=== PATIENT | female | born 1960 | race African-American/Black ===

== ENCOUNTER 2017-07-04 10:55 | Observation (INO) ==
[2017-07-04] MEDS ORDERED: ONDANSETRON 4 MG/2 ML VIAL IV STA ×2 (12:04→16:24)
[2017-07-04] MEDS ORDERED: ALUM/MAG/SIMETH/LIDO VISC 1:1 30 ML BOTTLE PO STA (12:04)
[2017-07-04] MEDS ORDERED: NITROGLYCERIN 2% OINT 1 INCH/GM PACK TOP STA (12:04)
[2017-07-04] MEDS ORDERED: MORPHINE 2 MG/1 ML SYRINGE IV STA ×2 (12:04→16:24)
[2017-07-04] MEDS ORDERED: ASPIRIN 325 MG TABLET PO STA (12:04)
[2017-07-04] MEDS ORDERED: ALUM/MAG/SIMETH/LIDO VISC 1:1 30 ML BOTTLE PO ONE (12:10)
[2017-07-04] MEDS ORDERED: ONDANSETRON 4 MG/2 ML VIAL ONE ×2 (12:10→16:13)
[2017-07-04] MEDS ORDERED: NITROGLYCERIN 2% OINT 1 INCH/GM PACK TOP ONE (12:10)
[2017-07-04] MEDS ORDERED: ASPIRIN 325 MG TABLET ONE (12:10)
[2017-07-04] MEDS ORDERED: MORPHINE 2 MG/1 ML SYRINGE ONE ×2 (12:10→16:13)
[2017-07-04] MEDS ORDERED: hydrALAZINE 20 MG/1 ML VIAL ONE ×2 (12:31→18:13)
[2017-07-04] MEDS ORDERED: hydrALAZINE 20 MG/1 ML VIAL IV STA ×3 (12:34→18:12)
[2017-07-04 12:40] LABS: Apearance,Urine CLOUDY (Clear); Bacteria,Urine Occasional /HPF (Few); Bilirubin,Urine Negative (Negative); Blood, Urine Negative (Negative); Glucose,Urine (UA) Negative (Negative); Ketones,Urine Negative (Negative); Mucus,Urine Moderate /LPF (Occasional); Nitrite,Urine Negative (Negative); Protein,Urine Negative; RBC,Urine 2 /HPF (0-4); Squamous Epithelial Cell,Urine Moderate /HPF (0-10); Urine Color Yellow (Yellow); Urine Specific Gravity 1.019 (1.001-1.035); Urine Urobilinogen < 2.0 EU/DL (0.2-1.0); WBC,Urine 6 /HPF (0-6)
[2017-07-04 12:52] LABS: Basophils % 0.8 % (0.0-0.8); Eosinophils # 0.2 10*3/uL (0.0-0.87); Hematocrit 38.1 VOL% (35.7-47.0); Hemoglobin 12.2 GM/DL (12.0-16.0); Lymphocytes # 2.8 10*3/uL (1.4-4.0); Lymphocytes % 53.9 % (21.3-54.2); Mean Corpuscular Hemoglobin 27 PG (27-34); Mean Corpuscular Volume 83.2 FL (87-102); Mean Platelet Volume 10.6 FL (9.6-12.0); Monocytes # 0.4 10*3/uL (0.11-0.8); Neutrophils # 1.8 10*3/uL (1.4-7.4); Neutrophils % 34.3 % (38.7-73.9); Platelet Count 272 T/CUMM (130-400); Red Blood Count 4.58 MC/CUMM (3.8-5.5); Red Cell Distribution Width 14.6 % (9.3-17.3); White Blood Count 5.3 T/CUMM (4-12)
[2017-07-04 13:10] LABS: INR 1.2; PT Patient Result 12.1 SECS
[2017-07-04 13:17] LABS: Alanine Aminotransferase < 9 U/L (13-56); Albumin 3.8 G/DL (3.4-5.0); Alkaline Phosphatase 85 U/L (45-117); Aspartate Amino Transferase 16 U/L (0-37); Bilirubin,Total < 0.39 MG/DL (0.2-1.0); Blood Urea Nitrogen 13 MG/DL (7-18); Calcium 9.1 MG/DL (8.5-10.1); Eosinophils 2 % (0-10); Glucose 95 MG/DL (74-106); Lymphocytes 54 % (20-55); Magnesium 2.3 MG/DL (1.8-2.4); Osmolality,Calculated 282.1 MOS/KG (273-304); Platelet Estimate Adequate; Potassium 3.7 MMOL/L (3.5-5.1); Segmented Neutrophils 36 % (50-85); Sodium 142 MMOL/L (136-145); Total Cells Counted 100; Total Protein 7.6 G/DL (6.4-8.3)
[2017-07-04 13:18] LABS: Atypical Lymphocytes Few; Giant Platelets Few; Hypochromasia 1+
[2017-07-04] MEDS ORDERED: ACETAMINOPHEN 325 MG TABLET PO PRN (15:24)
[2017-07-04] MEDS ORDERED: ENOXAPARIN 40 MG/0.4 ML SYRINGE ONE (17:34)
[2017-07-04] MEDS: ENOXAPARIN 40 MG/0.4 ML SYRINGE SUBCUT SCH (18:18)
[2017-07-04] MEDS ORDERED: hydrALAZINE 20 MG/1 ML VIAL IV PRN (18:39)
[2017-07-04] MEDS: ONDANSETRON 4 MG/2 ML VIAL IV PRN (20:33)
[2017-07-04] MEDS ORDERED: FAMOTIDINE 20 MG TABLET PO PRN (23:49)
[2017-07-05] MEDS: ONDANSETRON 4 MG/2 ML VIAL IV PRN ×3 (04:25→15:58)
[2017-07-05 04:55] LABS: Basophils % 0.4 % (0.0-0.8); Eosinophils % 0.4 % (0.00-10.9); Hematocrit 37.9 VOL% (35.7-47.0); Hemoglobin 12.1 GM/DL (12.0-16.0); Immature Granulocytes % 0.1 %; Immature Granulocytes Absolute 0.01 #; Lymphocytes # 2.8 10*3/uL (1.4-4.0); Lymphocytes % 39.6 % (21.3-54.2); Mean Corpuscular HGB Conc 31.9 GM/DL (32-36); Mean Corpuscular Hemoglobin 26 PG (27-34); Mean Corpuscular Volume 82.2 FL (87-102); Mean Platelet Volume 10.5 FL (9.6-12.0); Monocytes # 0.4 10*3/uL (0.11-0.8); Monocytes % 5.6 % (1.7-12.7); Neutrophils # 3.8 10*3/uL (1.4-7.4); Neutrophils % 53.9 % (38.7-73.9); Platelet Count 275 T/CUMM (130-400); Red Blood Count 4.61 MC/CUMM (3.8-5.5); Red Cell Distribution Width 14.6 % (9.3-17.3); White Blood Count 7.1 T/CUMM (4-12)
[2017-07-05 05:47] LABS: Calcium 8.7 MG/DL (8.5-10.1); Magnesium 2.2 MG/DL (1.8-2.4); Potassium 3.7 MMOL/L (3.5-5.1); Risk Ratio 2.56; VLDL CHOLESTEROL 6.8 MG/DL
[2017-07-05] MEDS ORDERED: PANTOPRAZOLE 40 MG TABLET PO SCH (09:00)
[2017-07-05] MEDS: MORPHINE 2 MG/1 ML SYRINGE IV PRN ×2 (09:02→15:57)
[2017-07-05] MEDS ORDERED: CARVEDILOL 25 MG TABLET PO SCH (09:30)
[2017-07-05] MEDS ORDERED: HydrOXYzine PAMOATE 25 MG CAPSULE PO PRN (11:52)
[2017-07-05] MEDS ORDERED: CARISOPRODOL 350 MG TABLET PO PRN (11:52)
[2017-07-05] MEDS: ENOXAPARIN 40 MG/0.4 ML SYRINGE SUBCUT SCH (15:57)
[2017-07-05 16:31] VITALS: BP 111/67
[2017-07-05] MEDS ORDERED: TOPIRAMATE 100 MG TABLET PO SCH (21:00)
[2017-07-05] MEDS ORDERED: busPIRone 15 MG TABLET PO SCH (21:00)
== END 2017-07-05 17:35 | disposition home or self-care (01) ==
LOC: N.ED 10:55 → N.EDINP 10:55 → SUATTDRO 14:36 → N.TELES 18:49
PROVIDERS: ADMIT Internal Medicine Nephrology; ATTEND Internal Medicine

== ENCOUNTER 2017-12-22 17:40 | Observation (INO) ==
[2017-12-22] MEDS ORDERED: ASPIRIN 325 MG TABLET PO STA (18:12)
[2017-12-22 18:32] LABS: Basophils % 0.6 % (0.0-0.8); Eosinophils # 0.2 10*3/uL (0.0-0.87); Hematocrit 37.7 VOL% (35.7-47.0); Hemoglobin 12.2 GM/DL (12.0-16.0); Lymphocytes # 2.5 10*3/uL (1.4-4.0); Lymphocytes % 49.6 % (21.3-54.2); Mean Corpuscular HGB Conc 32.4 GM/DL (32-36); Mean Corpuscular Hemoglobin 27 PG (27-34); Mean Corpuscular Volume 82.9 FL (87-102); Mean Platelet Volume 10.3 FL (9.6-12.0); Monocytes # 0.5 10*3/uL (0.11-0.8); Monocytes % 10.3 % (1.7-12.7); Neutrophils # 1.8 10*3/uL (1.4-7.4); Neutrophils % 35.5 % (38.7-73.9); Platelet Count 250 T/CUMM (130-400); Red Blood Count 4.55 MC/CUMM (3.8-5.5); Red Cell Distribution Width 14.9 % (9.3-17.3)
[2017-12-22 18:44] LABS: Albumin 4.1 G/DL (3.4-5.0); Bilirubin,Total 0.4 MG/DL (0.2-1.0); Calcium 8.5 MG/DL (8.5-10.1); Osmolality,Calculated 282.5 MOS/KG (273-304); Potassium 3.5 MMOL/L (3.5-5.1); Total Protein 8.2 G/DL (6.4-8.3)
[2017-12-22 18:52] LABS: Atypical Lymphocytes Few; Eosinophils 2 % (0-10); Lymphocytes 57 % (20-55); Platelet Estimate Normal; Segmented Neutrophils 37 % (50-85); Smudge Cells Few; Total Cells Counted 100
[2017-12-22] MEDS ORDERED: ACETAMINOPHEN 325 MG TABLET PO PRN (20:10)
[2017-12-22 20:51] LABS: Risk Ratio 2.97; VLDL CHOLESTEROL 15.6 MG/DL
[2017-12-22] MEDS: FAMOTIDINE 20 MG TABLET PO SCH (21:26)
[2017-12-22] MEDS: ENOXAPARIN 40 MG/0.4 ML SYRINGE SUBCUT SCH (21:26)
[2017-12-22] MEDS ORDERED: CARISOPRODOL 350 MG TABLET PO PRN (23:10)
[2017-12-22] MEDS ORDERED: HydrOXYzine PAMOATE 25 MG CAPSULE PO PRN (23:10)
[2017-12-22] MEDS ORDERED: LOSARTAN/HCTZ 50-12.5 MG TABLET PO SCH (23:15)
[2017-12-22] MEDS ORDERED: RANITIDINE 150 MG TABLET PO SCH (23:30)
[2017-12-22] MEDS: CARVEDILOL 25 MG TABLET PO SCH (23:33)
[2017-12-22] MEDS: ZALEPLON 5 MG CAPSULE PO PRN (23:33)
[2017-12-22] MEDS: busPIRone 10 MG TABLET PO SCH (23:33)
[2017-12-22] MEDS: CITALOPRAM 20 MG TABLET PO SCH ×2 (23:33→23:45)
[2017-12-22] MEDS: TOPIRAMATE 100 MG TABLET PO SCH (23:34)
[2017-12-22] MEDS: PANTOPRAZOLE 40 MG TABLET PO SCH (23:34)
[2017-12-23 01:15] LABS: Calcium 8.7 MG/DL (8.5-10.1); Osmolality,Calculated 285.3 MOS/KG (273-304); Potassium 3.3 MMOL/L (3.5-5.1)
[2017-12-23] MEDS: ASPIRIN EC 325 MG TABLET PO SCH (08:39)
[2017-12-23] MEDS: FAMOTIDINE 20 MG TABLET PO SCH ×2 (08:39→21:26)
[2017-12-23] MEDS: CARVEDILOL 25 MG TABLET PO SCH ×2 (11:54→21:46)
[2017-12-23] MEDS: ENOXAPARIN 40 MG/0.4 ML SYRINGE SUBCUT SCH (21:26)
[2017-12-23] MEDS: CITALOPRAM 20 MG TABLET PO SCH (21:26)
[2017-12-23] MEDS: busPIRone 10 MG TABLET PO SCH (21:26)
[2017-12-23] MEDS: TOPIRAMATE 100 MG TABLET PO SCH (21:27)
[2017-12-23] MEDS: PANTOPRAZOLE 40 MG TABLET PO SCH (21:27)
[2017-12-23] MEDS: ZALEPLON 5 MG CAPSULE PO PRN (21:30)
[2017-12-24 03:50] LABS: Calcium 9.2 MG/DL (8.5-10.1); Osmolality,Calculated 276.7 MOS/KG (273-304); Potassium 3.6 MMOL/L (3.5-5.1)
[2017-12-24] MEDS: CARVEDILOL 25 MG TABLET PO SCH (09:05)
[2017-12-24] MEDS: ASPIRIN EC 325 MG TABLET PO SCH (09:05)
[2017-12-24] MEDS: FAMOTIDINE 20 MG TABLET PO SCH (09:05)
[2017-12-24 12:56] VITALS: BP 105/50
== END 2017-12-24 13:25 | disposition home or self-care (01) ==
LOC: N.ED 17:40 → N.EDINP 17:40 → SUATTDRO 20:10 → N.TELEN 20:31
PROVIDERS: ADMIT Internal Medicine; ATTEND Internal Medicine

== ENCOUNTER 2020-11-11 17:51 | Observation (INO) ==
[2020-11-11 18:25] LABS: Basophils # 0.1 10*3/uL (0.0-0.2); Basophils % 0.7 % (0.0-0.8); Eosinophils # 0.2 10*3/uL (0.0-0.87); Eosinophils % 2.9 % (0.00-10.9); Hematocrit 44.2 VOL% (35.7-47.0); Hemoglobin 13.6 GM/DL (12.0-16.0); Immature Granulocytes % 0.1 %; Immature Granulocytes Absolute 0.01 #; Lymphocytes # 4.3 10*3/uL (1.4-4.0); Lymphocytes % 61.6 % (21.3-54.2); Mean Corpuscular HGB Conc 30.8 GM/DL (32-36); Neutrophils % 26.7 % (38.7-73.9); Platelet Count 328 T/CUMM (130-400); Red Blood Count 5.14 MC/CUMM (3.8-5.5); Red Cell Distribution Width 14.3 % (9.3-17.3)
[2020-11-11] MEDS ORDERED: NITROGLYCERIN SL 0.4 MG TABLET SL STA (18:33)
[2020-11-11 18:36] LABS: Albumin 4.1 G/DL (3.4-5.0); Bilirubin,Total 0.4 MG/DL (0.2-1.0); Calcium 9.5 MG/DL (8.5-10.1); Osmolality,Calculated 281.3 MOS/KG (273-304); Potassium 3.9 MMOL/L (3.5-5.1); Total Protein 8.1 G/DL (6.4-8.2)
[2020-11-11 19:26] LABS: Band Neutrophils 1 % (0-10); Lymphocytes 73 % (20-55); Segmented Neutrophils 22 % (50-85); Total Cells Counted 100
[2020-11-11 19:27] LABS: Microcytosis Slight; Platelet Estimate Normal
[2020-11-11] MEDS ORDERED: DEXTROSE 50% 25 GM/50 ML VIAL IV PRN (20:31)
[2020-11-11] MEDS ORDERED: ONDANSETRON 4 MG/2 ML VIAL IV PRN (20:31)
[2020-11-11] MEDS ORDERED: DOCUSATE SODIUM 100 MG CAPSULE PO PRN (20:31)
[2020-11-11] MEDS ORDERED: ZALEPLON 5 MG CAPSULE PO PRN (20:31)
[2020-11-11] MEDS ORDERED: GLUCAGON 1 MG VIAL IM PRN (20:31)
[2020-11-11] MEDS ORDERED: MORPHINE 4 MG/1 ML VIAL IV PRN (20:36)
[2020-11-11] MEDS ORDERED: carvediloL 3.125 MG TABLET PO SCH (21:00)
[2020-11-12] MEDS ORDERED: NITROGLYCERIN SL 0.4 MG TABLET SL PRN (00:16)
[2020-11-12 05:35] LABS: Basophils # 0.1 10*3/uL (0.0-0.2); Basophils % 0.7 % (0.0-0.8); Eosinophils # 0.2 10*3/uL (0.0-0.87); Eosinophils % 3.1 % (0.00-10.9); Hematocrit 42.2 VOL% (35.7-47.0); Hemoglobin 13.1 GM/DL (12.0-16.0); Immature Granulocytes % 0.1 %; Immature Granulocytes Absolute 0.01 #; Lymphocytes # 4.1 10*3/uL (1.4-4.0); Lymphocytes % 55.4 % (21.3-54.2); Mean Corpuscular Volume 86.3 FL (87-102); Mean Platelet Volume 9.9 FL (9.6-12.0); Monocytes % 8.4 % (1.7-12.7); Neutrophils % 32.3 % (38.7-73.9); Platelet Count 296 T/CUMM (130-400); Red Blood Count 4.89 MC/CUMM (3.8-5.5); Red Cell Distribution Width 14.1 % (9.3-17.3); White Blood Count 7.4 T/CUMM (4-12)
[2020-11-12] MEDS: ENOXAPARIN 40 MG/0.4 ML SYRINGE SUBCUT SCH ×2 (05:43→21:24)
[2020-11-12 06:01] LABS: Eosinophils 2 % (0-10); Hypochromasia Slight; Lymphocytes 46 % (20-55); Microcytosis Slight; Platelet Estimate Adequate; Segmented Neutrophils 49 % (50-85); Total Cells Counted 100
[2020-11-12 06:05] LABS: Osmolality,Calculated 282.1 MOS/KG (273-304); Potassium 3.4 MMOL/L (3.5-5.1); Risk Ratio 2.59; Thyroid Stimulating Hormone 1.13 uIU/ml (0.358-3.74); VLDL CHOLESTEROL 10.6 MG/DL
[2020-11-12] MEDS ORDERED: amLODIPine 10 MG TABLET PO SCH (09:00)
[2020-11-12] MEDS ORDERED: POTASSIUM CHLORIDE 20 MEQ TABLET PO ONE (09:15)
[2020-11-12] MEDS: SODIUM CHLORIDE 0.45% 1,000 ML IV SCH ×3 (09:43→17:11)
[2020-11-12] MEDS: HYOSCYAMINE 0.125 MG TABLET PO SCH ×3 (09:49→21:23)
[2020-11-12] MEDS: MONTELUKAST 10 MG TABLET PO SCH (09:49)
[2020-11-12] MEDS: busPIRone 10 MG TABLET PO SCH ×2 (09:50→21:25)
[2020-11-12] MEDS: PANTOPRAZOLE 40 MG TABLET PO SCH (09:50)
[2020-11-12] MEDS: carvediloL 25 MG TABLET PO SCH ×2 (09:50→21:23)
[2020-11-12] MEDS: LINACLOTIDE 145 MCG CAPSULE PO SCH (09:51)
[2020-11-12] MEDS: oxyCODONE/ACETAMINOPHEN 5-325 MG TABLET PO PRN (12:48)
[2020-11-12] MEDS ORDERED: ALUM/MAG/SIMETH/LIDO VISC 1:1 30 ML BOTTLE PO PRN (17:02)
[2020-11-12] MEDS: ZALEPLON 5 MG CAPSULE PO SCH (21:23)
[2020-11-12] MEDS: MORPHINE ER 15 MG TABLET PO SCH (21:23)
[2020-11-12] MEDS: TOPIRAMATE 100 MG TABLET PO SCH (21:24)
[2020-11-12] MEDS: LOSARTAN 50 MG TABLET PO SCH (21:24)
[2020-11-12] MEDS: CYCLOBENZAPRINE 10 MG TABLET PO SCH (21:44)
[2020-11-13] MEDS: SODIUM CHLORIDE 0.45% 1,000 ML IV SCH ×3 (01:12→10:35)
[2020-11-13 06:27] LABS: Calcium 8.4 MG/DL (8.5-10.1); Osmolality,Calculated 280.4 MOS/KG (273-304); Potassium 3.9 MMOL/L (3.5-5.1)
[2020-11-13 06:28] LABS: Basophils # 0.1 10*3/uL (0.0-0.2); Basophils % 0.9 % (0.0-0.8); Eosinophils # 0.2 10*3/uL (0.0-0.87); Eosinophils % 4.3 % (0.00-10.9); Hematocrit 37.8 VOL% (35.7-47.0); Hemoglobin 11.7 GM/DL (12.0-16.0); Immature Granulocytes % 0.2 %; Immature Granulocytes Absolute 0.01 #; Lymphocytes # 3.5 10*3/uL (1.4-4.0); Lymphocytes % 65.2 % (21.3-54.2); Mean Corpuscular Volume 87.3 FL (87-102); Mean Platelet Volume 10.3 FL (9.6-12.0); Neutrophils % 21.4 % (38.7-73.9); Platelet Count 261 T/CUMM (130-400); Red Blood Count 4.33 MC/CUMM (3.8-5.5); Red Cell Distribution Width 14.3 % (9.3-17.3); White Blood Count 5.4 T/CUMM (4-12)
[2020-11-13] MEDS: oxyCODONE/ACETAMINOPHEN 5-325 MG TABLET PO PRN ×3 (06:37→23:02)
[2020-11-13 06:56] LABS: Eosinophils 4 % (0-10); Lymphocytes 65 % (20-55); Platelet Estimate Adequate; Segmented Neutrophils 26 % (50-85); Total Cells Counted 100
[2020-11-13 06:57] LABS: Ovalocytes Slight
[2020-11-13 06:58] LABS: Atypical Lymphocytes Few; Hypochromasia Slight; Microcytosis Slight
[2020-11-13] MEDS: LINACLOTIDE 145 MCG CAPSULE PO SCH (07:57)
[2020-11-13] MEDS ORDERED: POTASSIUM CHLORIDE RIDER 10 MEQ in PREMIX 1 EACH IV PRN ×2 (08:17→17:29)
[2020-11-13] MEDS ORDERED: MAGNESIUM SULF RIDER 2 GM in PREMIX 1 EACH IV PRN ×2 (08:17→17:29)
[2020-11-13] MEDS: MONTELUKAST 10 MG TABLET PO SCH (09:04)
[2020-11-13] MEDS: ASPIRIN EC 81 MG TABLET PO SCH (09:04)
[2020-11-13] MEDS: PANTOPRAZOLE 40 MG TABLET PO SCH (09:04)
[2020-11-13] MEDS: busPIRone 10 MG TABLET PO SCH ×2 (09:04→21:09)
[2020-11-13] MEDS: HYOSCYAMINE 0.125 MG TABLET PO SCH ×3 (09:04→21:09)
[2020-11-13] MEDS: carvediloL 25 MG TABLET PO SCH ×2 (09:04→21:09)
[2020-11-13] MEDS ORDERED: DIAZEPAM 5 MG TABLET PO ONE (15:30)
[2020-11-13] MEDS ORDERED: diphenhydrAMINE CAP 50 MG CAPSULE PO ONE (15:30)
[2020-11-13] MEDS ORDERED: diphenhydrAMINE CAP 25 MG CAPSULE PO ONE (17:29)
[2020-11-13] MEDS: ZALEPLON 5 MG CAPSULE PO SCH (21:06)
[2020-11-13] MEDS: CYCLOBENZAPRINE 10 MG TABLET PO SCH (21:07)
[2020-11-13] MEDS: TOPIRAMATE 100 MG TABLET PO SCH (21:08)
[2020-11-13] MEDS: MORPHINE ER 15 MG TABLET PO SCH (21:08)
[2020-11-13] MEDS: ENOXAPARIN 40 MG/0.4 ML SYRINGE SUBCUT SCH (21:09)
[2020-11-13] MEDS: LOSARTAN 50 MG TABLET PO SCH ×2 (21:09→21:13)
[2020-11-14 05:10] LABS: Basophils % 0.7 % (0.0-0.8); Eosinophils # 0.3 10*3/uL (0.0-0.87); Eosinophils % 4.2 % (0.00-10.9); Immature Granulocytes % 0.2 %; Immature Granulocytes Absolute 0.01 #; Lymphocytes # 3.8 10*3/uL (1.4-4.0); Lymphocytes % 63.4 % (21.3-54.2); Mean Corpuscular HGB Conc 30.6 GM/DL (32-36); Mean Corpuscular Volume 86.7 FL (87-102); Mean Platelet Volume 9.9 FL (9.6-12.0); Monocytes % 8.7 % (1.7-12.7); Neutrophils % 22.8 % (38.7-73.9); Platelet Count 247 T/CUMM (130-400); Red Blood Count 4.15 MC/CUMM (3.8-5.5); Red Cell Distribution Width 14.1 % (9.3-17.3)
[2020-11-14 05:33] LABS: Atypical Lymphocytes Few; Eosinophils 4 % (0-10); Hypochromasia 1+; Lymphocytes 59 % (20-55); Microcytosis Slight; Segmented Neutrophils 31 % (50-85); Total Cells Counted 100
[2020-11-14 05:34] LABS: Ovalocytes Slight; Platelet Estimate Normal
[2020-11-14 05:42] LABS: Calcium 8.6 MG/DL (8.5-10.1); Potassium 3.9 MMOL/L (3.5-5.1)
[2020-11-14] MEDS ORDERED: DIAZEPAM 5 MG TABLET PO ONE ×2 (07:00→14:30)
[2020-11-14] MEDS ORDERED: diphenhydrAMINE CAP 25 MG CAPSULE PO ONE ×2 (07:00→14:30)
[2020-11-14] MEDS: MONTELUKAST 10 MG TABLET PO SCH (09:40)
[2020-11-14] MEDS: LINACLOTIDE 145 MCG CAPSULE PO SCH (09:40)
[2020-11-14] MEDS: PANTOPRAZOLE 40 MG TABLET PO SCH (09:41)
[2020-11-14] MEDS: carvediloL 25 MG TABLET PO SCH ×2 (09:41→21:15)
[2020-11-14] MEDS: HYOSCYAMINE 0.125 MG TABLET PO SCH ×3 (09:41→21:14)
[2020-11-14] MEDS: busPIRone 10 MG TABLET PO SCH ×2 (09:41→21:11)
[2020-11-14] MEDS: ASPIRIN EC 81 MG TABLET PO SCH (09:41)
[2020-11-14] MEDS: SODIUM CHLORIDE 0.45% 1,000 ML IV SCH ×2 (12:52→21:19)
[2020-11-14] MEDS ORDERED: HEPARIN/NACL 0.9% 2 UNITS/ML 2,000 UNIT/1,000 ML BAG IV ONE (14:07)
[2020-11-14] MEDS ORDERED: MIDAZOLAM 2 MG/2 ML VIAL ONE ×2 (14:40→14:55)
[2020-11-14] MEDS ORDERED: fentaNYL 100 MCG/2 ML VIAL ONE (14:40)
[2020-11-14] MEDS ORDERED: LIDOCAINE 1% 20 ML VIAL ONE (14:40)
[2020-11-14] MEDS: CYCLOBENZAPRINE 10 MG TABLET PO SCH (21:12)
[2020-11-14] MEDS: ZALEPLON 5 MG CAPSULE PO SCH (21:13)
[2020-11-14] MEDS: TOPIRAMATE 100 MG TABLET PO SCH (21:14)
[2020-11-14] MEDS: MORPHINE ER 15 MG TABLET PO SCH (21:15)
[2020-11-14] MEDS: LOSARTAN 50 MG TABLET PO SCH (21:16)
[2020-11-14] MEDS: ENOXAPARIN 40 MG/0.4 ML SYRINGE SUBCUT SCH (21:17)
[2020-11-15] MEDS: oxyCODONE/ACETAMINOPHEN 5-325 MG TABLET PO PRN (00:11)
[2020-11-15] MEDS: SODIUM CHLORIDE 0.45% 1,000 ML IV SCH ×2 (07:14→09:39)
[2020-11-15 08:50] VITALS: BP 155/89
[2020-11-15] MEDS: LINACLOTIDE 145 MCG CAPSULE PO SCH (09:38)
[2020-11-15] MEDS: HYOSCYAMINE 0.125 MG TABLET PO SCH (09:38)
[2020-11-15] MEDS: PANTOPRAZOLE 40 MG TABLET PO SCH (09:39)
[2020-11-15] MEDS: ASPIRIN EC 81 MG TABLET PO SCH (09:39)
[2020-11-15] MEDS: carvediloL 25 MG TABLET PO SCH (09:39)
[2020-11-15] MEDS: busPIRone 10 MG TABLET PO SCH (09:39)
[2020-11-15] MEDS: MONTELUKAST 10 MG TABLET PO SCH (09:39)
== END 2020-11-15 11:38 | disposition home or self-care (01) ==
LOC: N.EDINP 17:51 → N.ED 17:51 → SUATTDRO 20:31 → N.EDINP 23:56 → N.TELEN 11-12
PROVIDERS: ADMIT Family Medicine; ATTEND Emergency Medicine
PROC: CLCCHCL (ICD-10-PCS; 2020-11-14 14:45)